=== PATIENT | female | born 1960 | race Caucasian/White ===

== ENCOUNTER 2017-03-07 19:51 | Emergency (ER) | payer OTHER ==
[~2017-03-07] VITALS: Ht 152.4 cm; Wt 61.7 kg
[2017-03-07 19:56] VITALS: BP 161/93
--- NOTE | 2017-03-07 20:47 | NUR ---
PT TAKEN TO BED 7
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
--- NOTE | 2017-03-07 20:59 | NUR ---
Dr. Hicks evaluating patient at bedside.
[2017-03-07] MEDS ORDERED: NACL 0.9% 1,000 ML IV ONE (21:10)
[2017-03-07 21:42] LABS: BASOPHILS # (AUTO) 0.3 K/uL (0.00-0.22); EOSINOPHILS # (AUTO) 0.1 K/uL (0-0.4); HEMATOCRIT 39.8 % (36-48); HEMOGLOBIN 13.1 g/dL (12.0-16.0); LYMPHOCYTES # (AUTO) 0.8 K/uL (2.5-16.5); MEAN CORPUSCULAR HEMOGLOBIN 30 pg (27-31); MEAN CORPUSCULAR HGB CONC 33 g/dL (33-37); MEAN CORPUSCULAR VOLUME 92 fL (80-94); MONOCYTES # (AUTO) 0.7 K/uL (0.8-1.0); NEUTROPHILS # (AUTO) 6.7 K/uL (1.8-7.7); PLATELET COUNT (AUTO) 238 K/uL (140-450); RED BLOOD CELL COUNT(AUTO) 4.33 MIL/uL (4.20-5.40); WHITE BLOOD COUNT (AUTO) 8.6 K/uL (4.8-10.8)
[2017-03-07 22:00] LABS: ANION GAP 9.4 (8-16); CARBON DIOXIDE 28.6 mmol/L (21-32); CREATININE 0.8 mg/dL (0.6-1.3)
[2017-03-07 22:02] LABS: BARBITURATE, URINE NEG. ng/ml (NEG <=200); BENZODIAZEPINE, URINE NEG. ng/mL (NEG <=200); CANNABINOID, URINE POS. ng/mL (NEG <=50); COCAINE, URINE NEG. ng/mL (NEG <=300); OPIATE, URINE NEG. ng/mL (NEG <=2000); PHENCYCLIDINE SCREEN,URINE NEG. ng/mL (NEG <=25)
[2017-03-07 22:06] LABS: ALBUMIN 3.9 g/dL (3.4-5.0); TOTAL BILIRUBIN 0.2 mg/dL (0.0-1.0)
--- NOTE | 2017-03-07 22:15 | NUR ---
PT AMBULATED TO RESTROOM, WITH A STEADY GAIT. ACCOMPANIED BY DAUGHTER.
[2017-03-07 22:38] VITALS: BP 117/66
--- NOTE | 2017-03-07 22:38 | NUR ---
Patient discharged with v/s stable. Written and verbal after care instructions given and explained. Patient verbalized understanding. Wheel Chair Assisted with by EMT TO DAUGHTER'S CAR. All questions addressed prior to discharge. Advised to follow up with PMD.
== END 2017-03-07 22:38 | disposition home or self-care (01) ==
LOC: MED 19:51
DX: F12.10 Cannabis abuse, uncomplicated (principal); R00.2 Palpitations
CPT/HCPCS: 36415; 80053; 80305; 84484; 85025; 93005; 96360; 99285; J7030

== ENCOUNTER 2021-03-25 07:26 | Day surgery (SDC) | payer OTHER, SELFPAY ==
[~2021-03-25] VITALS: Ht 152.4 cm; Wt 61.2 kg
[2021-03-25] MEDS ORDERED: diphenhydrAMINE 50 MG/ML VIAL ONE (10:06)
[2021-03-25] MEDS ORDERED: MIDAZOLAM 5 MG/5 ML VIAL ONE (10:07)
[2021-03-25] MEDS ORDERED: fentaNYL citrate 0.05 MG/ML VIAL ONE (10:07)
[2021-03-25] MEDS ORDERED: LIDOCAINE 2% 100 MG/5 ML UJET TP ONE (10:07)
[2021-03-25] MEDS ORDERED: SIMETHICONE 40 MG/0.6 ML ONE (10:07)
[2021-03-25] MEDS ORDERED: fentaNYL citrate 0.05 MG/ML VIAL IVP ONE (11:15)
[2021-03-25] MEDS ORDERED: MIDAZOLAM 2 MG/2 ML VIAL IVP ONE (11:15)
== END 2021-03-25 11:44 | disposition home or self-care (01) ==
LOC: MDS 07:26 → MMU 07:26 → MDS 11:44
PROVIDERS: ATTEND Internal Medicine Gastroenterology
DX: Z12.11 Encounter for screening for malignant neoplasm of colon (principal); D12.3 Benign neoplasm of transverse colon; D12.0 Benign neoplasm of cecum; D12.5 Benign neoplasm of sigmoid colon; Z86.010 Personal history of colon polyps; K21.9 Gastro-esophageal reflux disease without esophagitis; Q44.6 Cystic disease of liver; Z79.899 Other long term (current) drug therapy; Z20.822 Contact with and (suspected) exposure to COVID-19
CPT/HCPCS: 45380; 45385; 87426; 88305; J2250; J3010; J1200